=== PATIENT | female | born 1980 | race African-American/Black ===

== ENCOUNTER 2023-02-21 16:21 | Emergency (ER) | payer BC ==
[2023-02-21] MEDS ORDERED: Sodium Chloride 0.9% 10 ML Syringe FLUSH PRN (17:02)
[2023-02-21 17:16] LABS: BASOPHILS ABSOLUTE AUTO 0.03 K/mm3 (0.01-0.08); BASOPHILS PERCENT AUTO 0.4 % (0.1-1.2); EOSINOPHILS ABSOLUTE AUTO 0.21 K/mm3 (0.04-0.36); EOSINOPHILS PERCENT AUTO 2.6 (0.7-5.8); HEMATOCRIT 35.2 % (34.1-44.9); HEMOGLOBIN 11.3 gm/dl (11.2-15.7); LYMPHOCYTES ABSOLUTE AUTO 2.68 K/mm3 (1.18-3.74); LYMPHOCYTES PERCENT AUTO 33.4 % (19.3-51.7); MEAN CORPUSCULAR HGB CONC 32.1 g/dl (32.2-35.5); MEAN CORPUSCULAR VOLUME 90.3 fl (79.4-94.8); MEAN PLATELET VOLUME 9.9 fl (9.4-12.3); MONOCYTES ABSOLUTE AUTO 0.54 K/mm3 (0.24-0.36); MONOCYTES PERCENT AUTO 6.7 % (4.7-12.5); NEUTROPHILS ABSOLUTE AUTO 4.56 K/mm3 (1.56-6.13); NEUTROPHILS PERCENT AUTO 56.9 % (34.0-71.1); PLATELET COUNT,PLT 386 K/mm3 (182-369); WHITE BLOOD CELL COUNT,WBC 8.02 K/mm3 (3.98-10.04)
[2023-02-21] MEDS ORDERED: Iopamidol 612 MG/ML 100 ML Bottle IVPUSH ONE (17:29)
[2023-02-21 17:36] LABS: A/G RATIO 0.9 (1-2); ALBUMIN 3.4 g/dl (3.4-5.0); ANION GAP 10.9 (5-15); BILIRUBIN TOTAL 0.2 mg/dL (0.2-1.0); BUN/CREATININE RATIO 17.8 (14-18); CALCIUM 8.5 mg/dL (8.5-10.1); CREATININE 0.9 mg/dL (0.55-1.02); EST CRCL DRUG DOSING (CG) 90.08 mL/min; POTASSIUM,K 3.9 mEq/L (3.5-5.1); PROTEIN TOTAL,TP 7.3 g/dl (6.4-8.2)
[2023-02-21] MEDS ORDERED: cefTRIAXone 1 GM in Sodium Chloride 0.9% 100 ML IV ONE (18:37)
== END 2023-02-21 19:48 | disposition home or self-care (01) ==
LOC: JD.ED 16:21
DX: L08.9 Local infection of the skin and subcutaneous tissue, unspecified (principal)
CPT/HCPCS: 36415; 70487; 70491; 80053; 85025; 96365; 99284; J0696; J3490; Q9967